=== PATIENT | female | born 1980 ===

== ENCOUNTER → 2022-12-03 10:14 | Outpatient (BNVA) | payer MEDICAID, SELFPAY | PROVIDERS: PCP Registered Nurse; Visit Provider Physician Assistant ==

== ENCOUNTER → 2022-12-24 10:33 | Outpatient (BNVA) | payer MEDICAID, SELFPAY | PROVIDERS: PCP Registered Nurse; Visit Provider Physician Assistant Surgical | DX: E66.9 Obesity, unspecified (principal); R40.0 Somnolence; Z68.33 Body mass index [BMI] 33.0-33.9, adult | CPT/HCPCS: 99202 ==

== ENCOUNTER → 2023-02-04 09:33 | Outpatient (BNVA) | payer MEDICAID, SELFPAY | PROVIDERS: PCP Registered Nurse; Visit Provider Dietitian, Registered | DX: E66.9 Obesity, unspecified (principal); E11.9 Type 2 diabetes mellitus without complications; Z68.31 Body mass index [BMI] 31.0-31.9, adult | CPT/HCPCS: 97802 ==

== ENCOUNTER 2023-04-05 11:29 | Outpatient (AMB) | payer MEDICAID, SELFPAY ==
--- NOTE | 2023-04-05 11:35 | MHC.OFFVISWM ---
Intake VS Expanded 04/05/23 11:42 Height 5 ft 6 in Weight 200 lb 3.2 oz BMI 32.3 BP 134/60 Blood Pressure Location Rt brachial Blood Pressure Position Sitting Pulse 84 Pulse Source Pulse Oximeter Temp 97.8 F Temperature Source Temporal Artery Scan Pulse Oximetry 98 Oxygen Delivery Method Room Air Body Fat 82.0 Body Fat Percentage 41.0 Free Fat Mass 118.2 Muscle Mass 112.2 Visceral Mass 9.0 Water Mass 84.4 BMR 1,643 Intake Visit Reasons: [facility] follow up Manager Change Required: No Allergies latex Allergy (Mild, Verified 04/05/23 11:41) Hives Medication List - Last Reconciled 04/05/23 by CLARENCE Lion losartan-hydrochlorothiazide 50-12.5 mg 1 tab PO DAILY metformin 500 mg PO DAILY HPI HPI Comments History of Present Illness Details 42 yo female returns to the office for F/U in the [facility] clinic. Initially seen on 12/24/22 with a weight of 209.8 pounds and a BMI of 33.8. Weight today is 200.2 pouns with a BMI of 32.3. Weight loss is 9.6 pounds or 4.5% TBWL BS in AM 130-140 She was down to 193 pounds but then went to [place] for 2 months. She reported she was feeling lightheadedness in the afternoon and when she met with RD her meal plan was changed. Meal plan: 1 Premier Protein shakes First shake at 8am-10am, (2 scoop in 8 oz low fat unsweetened almond milk each) Lettuce wrap w chicken Dinner at 4pm (7 forks of protein and 7 forks of salad/vegetables). 1 protein bar (Atkins bars at [employer], [employer], or [employer]) at 6pm-8pm.(not doing this) Drinking 64 oz Exercise plan: Walking 1 hour daily, not tracking calories gym, elliptical 30 min, then weight training (none in the last 2 months) PFSH Surgical History Hx of section Hx of cholecystectomy Hx of plastic surgery Family History Mother Diabetes Cancer Hypertension Father Cancer Diabetes Hypertension Kidney failure Heart disease Brother Cancer Diabetes Hypertension Brother Heart disease Diabetes Hypertension Daughter Asthma Son No problems noted. Social History Alcohol intake: current Alcohol intake frequency: a few times a week Patient Tobacco Use Status: Current someday Tobacco user Tobacco use type: Smokeless Tobacco Physical Exam Const General: healthy appearing and no acute distress Resp Effort & Inspection: normal respiratory effort Auscultation: clear to auscultation bilaterally Cardio Rate: regular rate Rhythm: regular rhythm GI Auscultation: normal bowel sounds Extrem General: Yes normal to inspection Assessment & Plan Assessment & Plan (1) Obesity (BMI 30-39.9): Code(s): E66.9 - Obesity, unspecified Plan: Patient has been given all of the information and tools to be successful. She was not following the meal plan or exercise plan for 2 months while she was in [place] although she does states she was thinking about it. She states that now that she has returned from her vacation, she plans on returning to the meal plan and exercise plan starting on Saturday. She was encouraged to not wait until Saturday, but rather start again today. She will follow-up for a final meeting with [facility] in about 4 weeks. Coding Level of Care Code Est Pt Level 3 (59783) Diagnoses Obesity (BMI 30-39.9) E66.9
[2023-04-05 11:42] VITALS: BP 134/60; PULSE 84; TEMP 36.6; O2SAT 98; BMI 32.3
== END 2023-04-05 12:32 | disposition home or self-care (01) ==
PROVIDERS: PCP Registered Nurse; Visit Provider Physician Assistant Surgical
DX: E66.9 Obesity, unspecified (principal)
CPT/HCPCS: 99213

== ENCOUNTER → 2023-04-05 11:29 | Outpatient (BNVA) | payer MEDICAID, SELFPAY | PROVIDERS: PCP Registered Nurse; Visit Provider Physician Assistant Surgical | DX: E66.9 Obesity, unspecified (principal); Z68.32 Body mass index [BMI] 32.0-32.9, adult | CPT/HCPCS: 99212; 99213 ==